=== PATIENT | male | born 1995 | race Two or more races ===

== ENCOUNTER → 2024-02-19 06:39 | Day surgery (SDC) | payer BC, SELFPAY | LOC: GI 06:39 | PROVIDERS: ATTENDING PHYSICIAN Internal Medicine Gastroenterology | DX: K64.8 Other hemorrhoids (principal); R19.4 Change in bowel habit; K29.50 Unspecified chronic gastritis without bleeding; K20.0 Eosinophilic esophagitis; K22.89 Other specified disease of esophagus; K21.9 Gastro-esophageal reflux disease without esophagitis | CPT/HCPCS: 45380; 43239; 88305; 88342 ==